=== PATIENT | male | born 1970 ===

== ENCOUNTER 2019-07-29 00:31 | Inpatient (IN) | payer OTHER ==
[~2019-07-29] VITALS: Ht 177.8 cm; Wt 72.7 kg
[2019-07-29] MEDS ORDERED: LORazepam 2 mg/ml vial IV ONE ×3 (00:35→02:15)
[2019-07-29] MEDS ORDERED: normal saline 1000ML IV soln IV ONE ×2 (00:35→01:40)
[2019-07-29 01:06] LABS: HEMATOCRIT 50.7 % (42.0-52.0); WHITE BLOOD COUNT 6.4 X10'3 (4.5-11.0)
[2019-07-29 01:08] LABS: HEMOGLOBIN 17.4 g/dl (14.0-17.9); MEAN CORPUSCULAR HEMOGLOBIN 31.4 PG (27.0-31.0); MEAN CORPUSCULAR HGB CONC 34.3 g/dL (33.0-36.5); MEAN CORPUSCULAR VOLUME 91.5 FL (78-98); MEAN PLATELET VOLUME 8.5 FL (7.4-10.4); PLATELET COUNT 115 X10'3 (140-440); RED BLOOD COUNT 5.54 X10'6 (4.70-6.10); RED CELL DISTRIBUTION WIDTH 13.7 % (11.5-14.5)
[2019-07-29 01:14] LABS: COLOR,URINE YELLOW (Yellow); GLUCOSE, URINE 100 mg/dl (Neg); KETONES,URINE NEGATIVE (Neg); LEUKOCYTE ESTERASE ,URINE NEGATIVE (Neg); NITRITES, URINE NEGATIVE (Neg); OCCULT BLOOD,URINE LARGE (Neg); PH,URINE 5.5 (4.8-8.0); PROTEIN,URINE 100 mg/dl (Neg)
[2019-07-29 01:17] LABS: PARTIAL THROMBOPLASTIN TIME 35 SECONDS (22-32)
[2019-07-29 01:19] LABS: UA COLLECTION TYPE FOLEY CATH
[2019-07-29 01:21] LABS: BACTERIA,URINE FEW /HPF (Neg); CLARITY,URINE SLIGHTLY CLOUDY (Clear); COARSE GRANULAR CAST 0-3 /LPF (NEGATIVE); MUCUS STRANDS FEW /LPF (Neg); RBC,URINE 0-2 /HPF (0-2); SQUAMOUS EPITHELIAL CELL,UR FEW /LPF (FEW)
[2019-07-29] MEDS ORDERED: calcium chloride inj. 1,000 MG in normal saline 100ml IV soln 100 ML IV ONE (01:25)
[2019-07-29 01:28] LABS: ALANINE AMINOTRANSFERASE 40 U/L (12-78); ALBUMIN 2.9 G/DL (3.4-5.0); ALBUMIN/GLOBULIN RATIO 0.6 (1.1-1.5); ALKALINE PHOSPHATASE 101 IU/L (46-116); ANION GAP 19 (8-16); ASPARTATE AMINO TRANSFERASE 52 U/L (10-37); BLOOD UREA NITROGEN 25 MG/DL (7-18); BUN/CREATININE RATIO 11.2 (5.4-32.0); CALCIUM 9.7 MG/DL (8.5-10.1); CHLORIDE 96 MMOL/L (99-107); CREATININE 2.23 MG/DL (0.60-1.10); GLUCOSE 162 MG/DL (70-104); MAGNESIUM 1.6 MG/DL (1.5-2.4); POTASSIUM 3.2 MMOL/L (3.5-5.1); SODIUM 135 MMOL/L (135-145); TOTAL CARBON DIOXIDE 19.7 MMOL/L (24-32); TOTAL PROTEIN 8.1 G/DL (6.4-8.2); eGFR 31 ML/MIN
[2019-07-29 01:32] LABS: TOTAL CELLS COUNTED 100
[2019-07-29 01:33] LABS: PLATELET ESTIMATE DECREASED
[2019-07-29] MEDS ORDERED: CefTRIAXone 2gm/D5W 50ml 50 ML IV ONE (01:40)
[2019-07-29 01:56] LABS: CREATINE KINASE 347 U/L (39-308); TROPONIN I 0.07 NG/ML (0.0-0.05)
--- NOTE | 2019-07-29 01:57 | NUR ---
Pt. transferred to CT Scan at this time with RN escort.
[2019-07-29 02:08] LABS: URINE AMPHETAMINE SCREEN POSITIVE (Neg); URINE BARBITUATE SCREEN NEGATIVE (Neg); URINE BENZODIAZEPINES SCREEN NEGATIVE (Neg); URINE CANNABINOID SCREEN POSITIVE (Neg); URINE COCAINE SCREEN NEGATIVE (Neg); URINE METHADONE SCREEN NEGATIVE (Neg); URINE OPIATE SCREEN NEGATIVE (Neg); URINE PHENCYCLIDINE SCREEN NEGATIVE (Neg)
[2019-07-29 02:15] LABS: ABG BASE EXCESS -9.6 mmol/L (-2.0-3.0); ABG HCO3 15.3 mmol/L (22.0-26.0); ABG OXYGEN SATURATION 94.7 % (95-98); ABG PCO2 (T) 30.7 mmHg (35.0-45.0); ABG PH (T) 7.314 (7.350-7.450); ABG PO2 (T) 77.2 mmHg (83-108); ALLEN'S TEST Positive; FCOHb 0.9 % (0.5-1.5); FLOW 10 L/min; FMetHb 0.1 % (0.3-1.12); FO2Hb 93.8 % (94-100); PATIENT TEMPERATURE 36.7; TOTAL HEMOGLOBIN 15.2 G/dl (14.0-17.9)
[2019-07-29] MEDS ORDERED: cefepime 2g/NS 100ml ADVANTAGE 100 ML IV ONE (02:15)
--- NOTE | 2019-07-29 02:18 | NUR ---
Returned to ED room [address] scan at this time.
--- NOTE | 2019-07-29 02:19 | NUR ---
RT at bedside drawing ABGs. Pt. continous to be tachypneic and poor reading with SPO2.
[2019-07-29 02:36] LABS: ETHANOL < 0.010 GM/DL (0.0-0.010)
[2019-07-29 02:38] LABS: ACETAMINOPHEN < 2.0 UG/ML (10-30)
--- NOTE | 2019-07-29 02:44 | NUR ---
Pt. continues to be tachypneic. made aware. Order received to prepare for RSI.
[2019-07-29] MEDS ORDERED: rocuronium 10mg/ml inj IV ONE (03:00)
[2019-07-29] MEDS ORDERED: etomidate 2mg/ml inj. IV ONE (03:00)
--- NOTE | 2019-07-29 03:15 | NUR ---
Intubation successful at this time. See RSI documentation.
[2019-07-29] MEDS ORDERED: fentaNYL/PF 50MCG/1 ML 2ML syringe IV PRN ×2 (03:25→03:30)
[2019-07-29] MEDS ORDERED: midazolam 100mg in NS 100ml 100 ML IV SCH (03:25)
[2019-07-29] MEDS ORDERED: midazolam 100mg in NS 100ml 100 ML IV PRN ×2 (03:26→05:22)
[2019-07-29] MEDS ORDERED: FENTANYL-0.9 % NACL/PF 100 ML IV PRN (03:26)
[2019-07-29] MEDS ORDERED: midazolam 2 mg/2 ml injection IV ONE (03:30)
[2019-07-29 03:46] LABS: ABG BASE EXCESS -12.4 mmol/L (-2.0-3.0); ABG HCO3 16.2 mmol/L (22.0-26.0); ABG OXYGEN SATURATION 93.8 % (95-98); ABG PCO2 (T) 46.4 mmHg (35.0-45.0); ABG PH (T) 7.159 (7.350-7.450); ABG PO2 (T) 85.4 mmHg (83-108); ALLEN'S TEST Positive; FCOHb 0.6 % (0.5-1.5); FMetHb 0.1 % (0.3-1.12); FO2Hb 93.1 % (94-100); MINUTE VOLUME 9 L/min; PATIENT TEMPERATURE 36.7; PEEP 5 cm H2O; RESPIRATORY RATE 20 b/min; RESPIRATORY RATE (OBSERVED) 20 b/min; TIDAL VOLUME 450 mL; TOTAL HEMOGLOBIN 14.2 G/dl (14.0-17.9)
[2019-07-29] MEDS ORDERED: normal saline 1000ml 1,000 ML IV ONE (04:11)
--- NOTE | 2019-07-29 04:38 | NUR ---
SBP dropped significantly from 120s to 80s. Sedation meds held at this time.
[2019-07-29] MEDS ORDERED: acetaminophen 650mg rectal suppository RC ONE (04:40)
[2019-07-29 04:49] LABS: LYMPHOCYTES,CSF 28 % (40-80); MONOCYTES,CSF 3 % (15-45); NEUTRO,CSF 69 % (0-6)
[2019-07-29 04:54] LABS: GLUCOSE,CSF 48 MG/DL (40-75)
[2019-07-29 04:56] LABS: APPEARANCE,CSF CLEAR; CSF SUPERNATANT COLOR OTHER; CSF VOLUME 2 ML
[2019-07-29 04:57] LABS: CSF RBC 6650 /CU MM (0); TUBE# COUNTED 4
[2019-07-29 04:59] LABS: CSF WBC CT 125 /CU MM (0-5)
[2019-07-29 05:20] LABS: TOTAL PROTEIN,CSF 391 MG/DL (15-45)
[2019-07-29] MEDS ORDERED: NORepinephrine 8mg/ 250ml NS 250 ML IV PRN (05:22)
[2019-07-29] MEDS ORDERED: normal saline 1000ml 1,000 ML IV PRN (05:22)
[2019-07-29] MEDS ORDERED: ondansetron/PF 4mg/2ml inj IV PRN (05:25)
[2019-07-29] MEDS ORDERED: acetaminophen 650mg rectal suppository RC PRN (05:25)
[2019-07-29] MEDS ORDERED: dextrose 50%-water 50ml dispensing syringe IV PRN ×2 (05:25)
[2019-07-29] MEDS ORDERED: acetaminophen 325mg tablet PO PRN ×2 (05:25)
[2019-07-29] MEDS ORDERED: glucagon, human recombinant 1mg kit SUBCUT PRN (05:25)
[2019-07-29] MEDS ORDERED: albuterol 2.5 MG/3 ML nebule NEB PRN (05:25)
[2019-07-29] MEDS ORDERED: potassium Cl 20mEq/100mL bag 100 ML IV PRN (05:25)
[2019-07-29] MEDS ORDERED: MESSAGE TO PHARMACY PO ONE (05:25)
[2019-07-29] MEDS ORDERED: dextrose ORAL solution 15 GM/59 ML bottle PO PRN ×2 (05:25)
[2019-07-29] MEDS ORDERED: insulin Lispro (HumaLOG) vial - multi-dose SQ SCH (05:25)
--- NOTE | 2019-07-29 05:26 | NUR ---
at bedside performing central line placement at this time.
--- NOTE | 2019-07-29 05:45 | NUR ---
Pt. with juni heart rhytm (40/min) on monitor and undetectable pulse. Chest compression initiated by nuclear chemistry technician.
--- NOTE | 2019-07-29 05:58 | NUR ---
Code blue called at 0545 (See documentation). ROSC at 0558.
[2019-07-29] MEDS ORDERED: NORepinephrine 8mg/ 250ml NS 250 ML IV SCH (06:00)
--- NOTE | 2019-07-29 06:11 | NUR ---
Second code blue called at 0610 with ROSC at 0611 (See code blue documentation).
[2019-07-29] MEDS ORDERED: epiNEPHrine inj 5 MG in normal saline 250ml IV soln 250 ML IV SCH (06:15)
[2019-07-29] MEDS ORDERED: epiNEPHrine inj 5 MG in normal saline 250ml IV soln 250 ML IV PRN (06:16)
[2019-07-29] MEDS ORDERED: magnesium 4gm in 100ml NS 100 ML IV PRN (06:20)
[2019-07-29] MEDS ORDERED: sodium phosphate inj. 30 MMOL in dextrose 5%-water 250 ML IV PRN (06:20)
[2019-07-29] MEDS ORDERED: EPINEPHRINE IV SCH (06:20)
[2019-07-29] MEDS ORDERED: NORMAL SALINE IV SCH (06:20)
[2019-07-29] MEDS ORDERED: sodium phosphate inj. 15 MMOL in dextrose 5%-water 150 ML IV PRN (06:20)
[2019-07-29] MEDS ORDERED: magnesium 2GM in 50ml NS 50 ML IV PRN (06:20)
[2019-07-29] MEDS ORDERED: pantoprazole 40 MG vial IV ONE (06:20)
[2019-07-29 06:31] LABS: PO2 MIXED VENOUS (TEMP COR) 36.8 mmHg (35-46)
[2019-07-29] MEDS ORDERED: DOBUTamine-DoBUTrex 500mg/D5W 250 ML IV SCH (06:40)
--- NOTE | 2019-07-29 06:52 | NUR ---
assumed care of pt. pt is intubated at 100 FI02. hr 137. bp 64/54.
[2019-07-29] MEDS ORDERED: ipratropium/albuterol 3ml nebule NEB SCH (07:00)
[2019-07-29 07:05] VITALS: BP 82/53
--- NOTE | 2019-07-29 07:47 | NUR ---
0721 pt went into [facility]. code called. cpr began. md and cn at bedside. 07 md at bedside and cancelled cpr efforts. time of 722. [facility] notified.
--- NOTE | 2019-07-29 07:55 | NUR ---
[employer] released the body reference number [id number], Alison
[2019-07-29] MEDS ORDERED: pantoprazole 40 MG vial IV SCH (08:00)
[2019-07-29] MEDS ORDERED: heparin, porcine 5000 units/ml vial SQ SCH (08:00)
[2019-07-29] MEDS ORDERED: docusate sodium 100mg/10ml UD cup PO SCH (08:00)
--- NOTE | 2019-07-29 08:01 | NUR ---
sourav called to notify corner Addendum: 07/29/19 at 0802 by SARAH amadou
--- NOTE | 2019-07-29 08:17 | NUR ---
FAMILY PLACED IN ROOM 17. GHANSHYAM RAMIREZ CALLED ON THEIR REQUEST, COMFORT CART ALSO ORDERED.
--- NOTE | 2019-07-29 08:34 | NUR ---
mother saw patient. zayra called per family request. sheriff ramsay released the body
[2019-07-29] MEDS ORDERED: epiNEPHrine 0.1mg/ml 10ml syringe ONE (10:00)
[2019-07-29] MEDS ORDERED: sodium bicarbonate (8.4%) 1 mEq/ml syringe ONE (10:00)
[2019-07-29] MEDS ORDERED: calcium chloride 100 MG/1 ML inj IV ONE (10:00)
[2019-07-29] MEDS ORDERED: pantoprazole 40MG/NS 100ML BAG 100 ML IV SCH (11:00)
[2019-07-29] MEDS ORDERED: insulin glargine (Lantus) pen - multi-dose SQ SCH (21:00)
[2019-07-30] MEDS ORDERED: cefepime inj 2 GM in normal saline 100ml IV soln 100 ML IV SCH (02:00)
[2019-07-30] MEDS ORDERED: vancomycin/NS 1 GM ADD-VANTAGE 250 ML IV SCH (03:00)
[2019-07-30] MEDS ORDERED: FENTANYL-0.9 % NACL/PF 100 ML IV PRN (03:26)
[2019-07-30] MEDS ORDERED: mineral oil/petrolatum ophthal oint EACHEYE SCH (08:00)
[2019-07-31] MEDS ORDERED: lactulose 20gm/30ml cup PO PRN (05:25)
[2019-08-02] MEDS ORDERED: VANCOMYCIN LEVEL IV ONE (02:30)
== END 2019-07-29 07:23 | disposition expired | DRG 871 ==
LOC: ER 00:32 → ED HOLD 05:22 → ICU 2S 06:41 → ED HOLD 06:41
PROVIDERS: ADMIT Internal Medicine Critical Care Medicine; ATTEND Internal Medicine Critical Care Medicine
PROC: 5A12012 Performance of Cardiac Output, Single, Manual (ICD-10-PCS; principal; 2019-07-29)
PROC: 009U3ZZ Drainage of Spinal Canal, Percutaneous Approach (ICD-10-PCS; 2019-07-29)
PROC: 5A1935Z Respiratory Ventilation, Less than 24 Consecutive Hours (ICD-10-PCS; 2019-07-29)
PROC: 0BH17EZ Insertion of Endotracheal Airway into Trachea, Via Natural or Artificial Opening (ICD-10-PCS; 2019-07-29)
DX: A41.9 Sepsis, unspecified organism (principal); J96.00 Acute respiratory failure, unspecified whether with hypoxia or hypercapnia; R65.21 Severe sepsis with septic shock; G93.40 Encephalopathy, unspecified; I38 Endocarditis, valve unspecified; I76 Septic arterial embolism; K92.2 Gastrointestinal hemorrhage, unspecified; N39.0 Urinary tract infection, site not specified; J90 Pleural effusion, not elsewhere classified; I46.9 Cardiac arrest, cause unspecified; K44.9 Diaphragmatic hernia without obstruction or gangrene; Z78.1 Physical restraint status
CPT/HCPCS: 31500; 36415; 36556; 36600; 62270; 70450; 71045; 74176; 80053; 80305; 80320; 80329; 81001; 82550; 82803; 82810; 82945; 83605; 83735; 84145; 84157; 84484; 85018; 85025; 85610; 85730; 87015; 87040; 87070; 87077; 87088; 87186; 89051; 92950; 94002; 94640; 94760; 96365; 96375; 99291; C9113; G0378; J0171; J0692; J1250; J1815; J2060; J2250; J3010; J3370; J7050